=== PATIENT | female | born 1990 | race African-American/Black ===

== ENCOUNTER 2017-11-09 16:58 | Emergency (ER) | payer MEDICAID, OTHER ==
[~2017-11-09] VITALS: Ht 157.5 cm; Wt 49.9 kg
[2017-11-09 17:30] VITALS: BP 120/80
[2017-11-09] MEDS ORDERED: PREDNISONE20 MG ORAL (17:53)
[2017-11-09] MEDS ORDERED: BENADRYL25 MG ORAL (17:53)
[2017-11-09] MEDS ORDERED: EPIPEN 2-P0.3 MG/0.3 IM (17:54)
--- NOTE | 2017-11-09 21:38 | Emergency Room Report ---
History of Present Illness General Chief Complaint: Allergic Reaction Source: Patient Present Illness HPI The patient is a 27-year-old female with a stated history of shellfish presenting for possible allergic reaction. She states that she was at a restaurant and her friend ordered seafood. She began to feel numbness of her tongue and shortness of breath. EMS was called. She received a breathing treatment on the way to the emergency department and states that she is feeling better. She denies any other symptoms including fever, chills, CP, rash, abd pain Allergies: Coded Allergies: No Known Allergies (Unverified , 11/09/17) Patient History Past Medical History: see triage record Pertinent Family History: none Now: No Reviewed Nursing Documentation: PMH: Agreed, PSxH: Agreed Nursing Documentation-PMH Past Medical History: No Stated History Review of Systems All Other Systems: negative except mentioned in HPI Physical Exam Vital Signs Date Time Temp Pulse Resp B/P (MAP) Pulse Ox O2 Delivery O2 Flow Rate FiO2 11/09/17 17:00 97.3 86 16 120/80 98 Room Air Sp02 EP Interpretation: reviewed, normal General Appearance: no apparent distress, alert, GCS 15, non-toxic Head: normocephalic, atraumatic Eyes: bilateral eye normal inspection, bilateral eye PERRL ENT: hearing grossly normal, normal pharynx, no angioedema, normal voice, uvula midline Neck: full range of motion, supple/symm/no masses Respiratory: chest non-tender, lungs clear, normal breath sounds, speaking full sentences Cardiovascular #1: regular rate, rhythm, no edema Musculoskeletal: back normal, gait/station normal, normal range of motion, non- tender Neurologic: alert, oriented x3, responsive, motor strength/tone normal, sensory intact, speech normal Psychiatric: judgement/insight normal, memory normal, mood/affect normal, no suicidal/homicidal ideation Skin: normal color, no rash, warm/dry, well hydrated Lymphatic: no adenopathy Medical Decision Making PA Attestation Dr. Luz is my supervising physician. Patient management was discussed with my supervising physician Diagnostic Impression: Primary Impression: Allergic reaction Qualified Codes: T78.40XA - Allergy, unspecified, initial encounter ER Course The patient is a 27-year-old female with a stated history of shellfish presenting for possible allergic reaction. DDx considered but not limited to: anaphylaxis, allergic reaction, asthma, among others PE: Vitals stable. No apparent distress. No TTP over maxillary or frontal sinuses. Oropharynx patent. No angioedema Lungs CTA bilat. No wheezing. No accessory muscle use. Heart: RRR, no abnormal heart sounds Ears: external auditory canal clear. Non erythematous. Bilat TM intact. Cone of light present bilat. No bulging of TM. No serous fluid seen. no nasal D/C No tonsillar exudate. Uvula midline.Oropharynx non erythematous Skin is warm and dry. No urticaria The patient is given Benadryl and prednisone and is monitored in the emergency department. States that she is feeling better. She is discharged with prescription for Benadryl and prednisone as well as EpiPen. ER precautions given Last Vital Signs Date Time Temp Pulse Resp B/P (MAP) Pulse Ox O2 Delivery O2 Flow Rate FiO2 11/09/17 17:30 97.3 16 120/80 98 Room Air 11/09/17 17:00 86 Status: improved Disposition: HOME, SELF-CARE Condition: Improved Scripts Epinephrine (Epipen 2-Redd) 0.3 Mg/0.3 Ml Auto.injct 0.3 MG IM PRN, #1 EA Prov: KAY BROWN.A. 11/09/17 Prednisone* (PREDNISONE*) 20 Mg Tablet 40 MG ORAL DAILY, #8 TAB Prov: KAY BROWN P.A. 11/09/17 Diphenhydramine Hcl* (BENADRYL*) 25 Mg Capsule 25 MG ORAL Q6H Y for Itching, #15 CAP Prov: KAY BROWN P.A. 11/09/17 Referrals: [facility],REFERRING (PCP) Patient Instructions: Food Allergy Additional Instructions: I discussed my findings with the patient. All questions and concerns have been answered. Treatment and medication compliance have been addressed. Return to ED if symptoms worsen, new symptoms arise such as difficulty breathing, or if needed for any reason. Patient verbalized understanding of discharge instructions. KAY BROWN Nov 09, 2017 21:38
== END 2017-11-09 18:16 | disposition home or self-care (01) ==
LOC: EDBD 16:58 → EMR 18:00
DX: T78.40XA Allergy, unspecified, initial encounter (principal); X58.XXXA Exposure to other specified factors, initial encounter; R06.02 Shortness of breath; R20.0 Anesthesia of skin
CPT/HCPCS: 99283; J7512